=== PATIENT | male | born 1960 | race Two or more races ===

== ENCOUNTER 2021-03-23 13:41 | Emergency (ER) | payer OTHER ==
[2021-03-23 14:05] VITALS: BP 139/71; PULSE 77; TEMP 98.4; BMI 27.3
[2021-03-23] MEDS ORDERED: diazePAM 2 MG TABLET PO ONE (15:06)
[2021-03-23] MEDS ORDERED: diazePAM 2 MG TABLET ONE (15:24)
== END 2021-03-23 16:55 | disposition home or self-care (01) ==
LOC: JER 13:41
DX: M54.32 Sciatica, left side (principal)
CPT/HCPCS: 72100-TC-FY; 93005; 93010; 99284-25